=== PATIENT | female | born 1980 | race Two or more races ===

== ENCOUNTER 2024-03-05 12:11 | Emergency (ER) | payer OTHER ==
[~2024-03-05] VITALS: Ht 165.1 cm; Wt 108.5 kg
[2024-03-05 13:07] VITALS: BP 130/70; PULSE 79; RESP 16; TEMP 98.8; O2SAT 99
[2024-03-05] MEDS ORDERED: IBUP-1455 PO (13:16)
[2024-03-05] MEDS ORDERED: AMOX875T3 PO (13:16)
== END 2024-03-05 13:33 | disposition home or self-care (01) ==
LOC: ER 12:11
DX: J03.90 Acute tonsillitis, unspecified (principal)